=== PATIENT | male | born 1970 | race Caucasian/White ===

== ENCOUNTER 2017-01-01 11:37 | Emergency (ER) | payer SELFPAY ==
[~2017-01-01] VITALS: Ht 177.8 cm; Wt 100.0 kg
[~2017-01-01 11:37] MED LIST: DOXY100T PO; SULF1TAB47 PO; TYLE3 PO
[2017-01-01 11:38] VITALS: BP 145/86; PULSE 66; RESP 18; TEMP 98; O2SAT 100
[2017-01-01] MEDS ORDERED: KETOROLAC TROMETHAMINE 60 MG/2 ML (IM) VIAL IM ONE (12:45)
[2017-01-01] MEDS ORDERED: ACETAMINOPHEN/HYDROcodone 325 MG/5 MG TAB PO ONE (12:45)
[2017-01-01] MEDS ORDERED: HYDR-3583 PO (12:49)
--- NOTE | 2017-01-01 12:49 | PD ---
HPI Chief Complaint: Musculoskeletal Complaint Time Seen by Provider: 12:35 Travel History International Travel<30 days: No Contact w/Intl Traveler<30days: No Traveled to known affect area: No History of Present Illness HPI 46 yo M fell 12 feet from a ladder two days prior. Today pt felt a pop in the R lower/lateral ribs. Pain with deep breathing present now. No SOB at rest. Pt also injured L ankle however has been ambulatory since. Motring 800 mg q6h has been helpful. PFSH Past Surgical History Abdominal Surgery: Yes (DUODENAL ULCER REPAIR 03/19) Genitourinary Surgery: Yes (BLADDER REPAIR 6 MONTH OLD INFANT 1968) Tonsillectomy: Yes (1974) Social History Alcohol Use: No Tobacco Use: No Allergies-Medications (Allergen,Severity, Reaction): Coded Allergies: No Known Allergies (Verified Allergy, Mild, 01/01/17) Reported Meds & Prescriptions Reported Meds & Active Scripts Active Hydrocodone-Acetaminophen 10-325 mg Tab 1 Tab PO HS PRN Review of Systems General / Constitutional: No: Fever Cardiovascular: Positive: Chest Pain or Discomfort (from injury) Respiratory: No: Cough, Shortness of Breath Gastrointestinal: Positive: Other (no bloody stool) Genitourinary: No: Hematuria Physical Exam Narrative GENERAL: 46 yo M NAD, WNWD, ambulatory SKIN: Warm and dry. HEAD: Normocephalic. EYES: No scleral icterus. No injection or drainage. NECK: Supple, trachea midline. No JVD or lymphadenopathy. CARDIOVASCULAR: Regular rate and rhythm without murmurs, gallops, or rubs. RESPIRATORY: MInimal TTP along lower margin of ribs without flail chest. breath sounds equal bilaterally. NO trachea deviation or sign of ptx otherwise. GASTROINTESTINAL: Abdomen soft, non-tender, nondistended. MUSCULOSKELETAL: No cyanosis, or edema. Ecchymosis about the L ankle with minimal tenderness, trace antalgia with ambulation. NO gross deformity otherwise. BACK: Nontender without obvious deformity. No CVA tenderness. Data Data Last Documented VS Vital Signs Date Time Temp Pulse Resp B/P (MAP) Pulse Ox O2 Delivery O2 Flow Rate FiO2 01/01/17 11:38 98.0 66 18 145/86 (105) 100 Room Air VS reviewed Orders Orders Acetamin-Hydrocod 325-5 Mg ([place] 5-325 (01/01/17 12:45) Ketorolac Inj (Toradol Inj) (01/01/17 12:45) Resp Incentive Spirometry (01/01/17 ) Ed Discharge Order (01/01/17 12:49) [facility] Medical Decision Making Medical Screen Exam Complete: Yes Emergency Medical Condition: Yes Medical Record Reviewed: Yes Differential Diagnosis rib fracture, rib contusion, ankle contusion, ptx Narrative Course no sign ptx ambulatory with ecchymosis about the left ankle, xray considered reasonably safely deferrable at this time no flail chest no ptx pain control with lortab and breathing with incentive spirometer return precautions discussed opioid precuations dischsseed Diagnosis Primary Impression: Contusion of rib on right side Qualified Codes: S20.211A - Contusion of right front wall of thorax, initial encounter Additional Impressions: Sprained ankle Qualified Codes: S93.402A - Sprain of unspecified ligament of left ankle, initial encounter Fall Qualified Codes: W19.XXXA - Unspecified fall, initial encounter Patient Instructions: Narcotic given in the ED Med/Other Pt SpecificInfo: Prescription(s) given Scripts Hydrocodone-Acetaminophen (Hydrocodone-Acetaminophen) 10-325 mg Tab 1 TAB PO HS Y for PAIN, #15 TAB 0 Refills Prov: Ovidio Nazario MD 01/01/17 Disposition: 01 DISCHARGE HOME Condition: Stable Ovidio Nazario MD Jan 01, 2017 12:49
== END 2017-01-01 13:04 | disposition home or self-care (01) ==
LOC: NEPK 11:37
DX: S20.211A Contusion of right front wall of thorax, initial encounter (principal); S93.402A Sprain of unspecified ligament of left ankle, initial encounter; W11.XXXA Fall on and from ladder, initial encounter
CPT/HCPCS: 96372; 99285; J1885

== ENCOUNTER 2017-04-19 15:36 | Emergency (ER) | payer SELFPAY ==
[~2017-04-19] VITALS: Ht 177.8 cm; Wt 101.0 kg
[~2017-04-19 15:36] MED LIST changes: -DOXY100T PO; +HYDR-3583 PO; -SULF1TAB47 PO; -TYLE3 PO
[2017-04-19 15:46] VITALS: BP 151/97; PULSE 99; RESP 18; TEMP 98.7; O2SAT 97
[2017-04-19] MEDS ORDERED: HYDR-3516 PO (15:58)
[2017-04-19] MEDS ORDERED: AMOX875T PO (15:58)
[2017-04-19] MEDS ORDERED: MAGICADU2 SWISH-SWAL (15:58)
[2017-04-19] MEDS ORDERED: DICL75TA PO (15:58)
--- NOTE | 2017-04-19 16:05 | PD ---
HPI Chief Complaint: Oral / Dental Pain or Problem Time Seen by Provider: 15:51 Travel History International Travel<30 days: No Contact w/Intl Traveler<30days: No Traveled to known affect area: No History of Present Illness HPI 46-year-old male that presents to the ED for evaluation of dental pain. Patient states that his been having issues with his right lower tooth for some time. Per patient he broke part of the tooth about 2 weeks ago and 2 days ago he broke a little bit more. Per patient ever since he had more swelling and pain. Per patient he has not eaten all follow with a dentist. Per patient he knows that he needs to get the 2 defects. Per patient is concerned because of infection. He has more swelling. Per patient the pain is 10 out of 10. He has not done anything for this. No other medical issues. PFSH Past Medical History Medical History: Denies Significant Hx Influenza Vaccination: No Past Surgical History Abdominal Surgery: Yes (DUODENAL ULCER REPAIR 03/19) Genitourinary Surgery: Yes (BLADDER REPAIR 6 MONTH OLD 1968) Tonsillectomy: Yes (1974) Social History Alcohol Use: No Tobacco Use: No Substance Use: No Allergies-Medications (Allergen,Severity, Reaction): Coded Allergies: No Known Allergies (Verified Allergy, Mild, 04/19/17) Reported Meds & Prescriptions Reported Meds & Active Scripts Active Magic Mouthwash Adult Liq (Multi-Ingredient Mouthwash/Gargle) 120 Ml Susp 5 Ml SWISH-SWAL ACHS Each 5mL contains: Nystatin 200,000units, Diphenhydramine 4.25mg, Viscous Lidocaine 10mg, Crooks syrup 0.8 mL Amoxicillin 875 Mg Tab 875 Mg PO BID 10 Days Hydrocodone-Acetaminophen 5-325 mg Tab 1 Tab PO Q6H PRN Diclofenac Sodium DR (Diclofenac Sodium) 75 Mg Tabdr 75 Mg PO BID PRN Hydrocodone-Acetaminophen 10-325 mg Tab 1 Tab PO HS PRN Review of Systems Except as stated in HPI: all other systems reviewed are Neg Physical Exam Narrative GENERAL: SKIN: Warm and dry. HEAD: Atraumatic. Normocephalic. EYES: Pupils equal and round. No scleral icterus. No injection or drainage. ENT: No nasal bleeding or discharge. Mucous membranes pink and moist. Tongue is midline. No uvula deviation. Dental: Patient has bad dentition noted on the right second molar with about half of the tooth missing. Socket with appears to be exposed. Patient does have soft tissue swelling noted on the right side of the face. NECK: Trachea midline. No JVD. CARDIOVASCULAR: Regular rate and rhythm. RESPIRATORY: No accessory muscle use. Clear to auscultation. Breath sounds equal bilaterally. GASTROINTESTINAL: Abdomen soft, non-tender, nondistended. Hepatic and splenic margins not palpable. MUSCULOSKELETAL: Extremities without clubbing, cyanosis, or edema. No obvious deformities. NEUROLOGICAL: Awake and alert. No obvious cranial nerve deficits. Motor grossly within normal limits. Five out of 5 muscle strength in the arms and legs. Normal speech. PSYCHIATRIC: Appropriate mood and affect; insight and judgment normal. Data Data Last Documented VS Vital Signs Date Time Temp Pulse Resp B/P (MAP) Pulse Ox O2 Delivery O2 Flow Rate FiO2 04/19/17 15:46 98.7 99 18 151/97 (115) 97 MDM Medical Decision Making Medical Screen Exam Complete: Yes Emergency Medical Condition: Yes Medical Record Reviewed: Yes Differential Diagnosis To pain versus fracture versus dentalgia versus dental abscess Narrative Course 38-year-old male that presents to the ED for evaluation of tooth pain. Patient was properly examined and was found to have signs and symptoms consistent appears to be dental infection. Patient was treated for this with amoxicillin, Copaxone, Lortab and Magic mouthwash. Do recommend that the patient gets over- the-counter dry socket paste applied to the wound. This might help with the pain more than the pain medication given. Patient understands to follow with dentist. See ED worsening symptoms. Diagnosis Primary Impression: Dentalgia Patient Instructions: General Instructions Additional Instructions: Take medications as prescribed. Follow with PCP. Ice to the area. Liquid diet until better. You can apply lost filling and loose cap repair paste to the dry socket (you can get this at any pharmacy) ask your pharmacist about this. See ED if worsening symptoms. F/u with dentist. Med/Other Pt SpecificInfo: Prescription(s) given Scripts Mmzbagva-Dcahcmeuymvziin-Cznheitwu Liq (Magic Mouthwash Adult Liq) 120 Ml Susp 5 ML SWISH-SWAL ACHS for Mouth sores, #120 ML 0 Refills Each 5mL contains: Nystatin 200,000units, Diphenhydramine 4.25mg, Viscous Lidocaine 10mg, Crooks syrup 0.8 mL Prov: Xavi Horne MD 04/19/17 Amoxicillin (Amoxicillin) 875 Mg Tab 875 MG PO BID for Infection for 10 Days, #20 TAB 0 Refills Prov: Xavi Horne MD 04/19/17 Hydrocodone-Acetaminophen (Hydrocodone-Acetaminophen) 5-325 mg Tab 1 TAB PO Q6H Y for PAIN, #12 TAB 0 Refills Prov: Xavi Horne MD 04/19/[address] (Diclofenac Sodium DR) 75 Mg Tabdr 75 MG PO BID Y for PAIN SCALE 1 TO 10, #20 TAB 0 Refills Prov: Xavi Horne MD 04/19/17 Disposition: 01 DISCHARGE HOME Condition: Oswaldo Thomas Apr 19, 2017 16:05
== END 2017-04-19 16:21 | disposition home or self-care (01) ==
LOC: PHEFT 15:36
DX: K08.89 Other specified disorders of teeth and supporting structures (principal)
CPT/HCPCS: 99283

== ENCOUNTER 2017-06-28 13:25 | Emergency (ER) | payer SELFPAY ==
[~2017-06-28] VITALS: Ht 177.8 cm; Wt 88.5 kg
[~2017-06-28 13:25] MED LIST changes: +AMOX875T PO; +DICL75TA PO; +HYDR-3516 PO; +MAGICADU2 SWISH-SWAL
[2017-06-28] MEDS ORDERED: IOHEXOL 350 MG/ML 10 ML VIAL (for RAD DIAG) IVCONTRAST ONE (13:26)
[2017-06-28 13:37] VITALS: BP 143/79; PULSE 108; RESP 18; TEMP 98.3; O2SAT 100
[2017-06-28] MEDS ORDERED: CLINDAMYCIN INJ 900 MG in SODIUM CHLORIDE 0.9% INJ 100 ML IV ONE (14:00)
[2017-06-28] MEDS ORDERED: TETANUS/DIPHTHERIA TOXOID ADULT 0.5 ML VIAL IM ONE (14:00)
[2017-06-28] MEDS ORDERED: SODIUM CHLORIDE 0.9% FLUSH 10 ML FLUSH IVF PRN (14:00)
[2017-06-28] MEDS ORDERED: KETOROLAC TROMETHAMINE 30 MG/ML (IVP) VIAL IVP ONE (14:00)
[2017-06-28 14:48] LABS: AUTOMATED NEUTROPHIL # 12.6 TH/MM3 (1.8-7.7); BASOPHIL % 0.3 % (0.0-2.0); EOSINOPHIL % 0.1 % (0.0-4.0); HEMATOCRIT 40.1 % (39.0-51.0); HEMOGLOBIN 13.7 GM/DL (13.0-17.0); LYMPH % 7.8 % (9.0-44.0); LYMPHOCYTE # 1.2 TH/MM3 (1.0-4.8); MEAN CELL VOLUME 84.3 FL (80.0-100.0); MEAN CORPUSCULAR HEMOGLOBIN 28.8 PG (27.0-34.0); MEAN CORPUSCULAR HGB CONC 34.1 % (32.0-36.0); MEAN PLATELET VOLUME 10.5 FL (7.0-11.0); MONO % 6.7 % (0.0-8.0); NEUT % 85.1 % (16.0-70.0); PLATELET COUNT 175 TH/MM3 (150-450); RED BLOOD COUNT 4.76 MIL/MM3 (4.50-5.90); RED CELL DISTRIBUTION WIDTH 13.9 % (11.6-17.2); WHITE BLOOD COUNT 14.8 TH/MM3 (4.0-11.0)
[2017-06-28 15:27] LABS: BICARBONATE 32.8 MEQ/L (21.0-32.0); CALCIUM 8.9 MG/DL (8.5-10.1); CREATININE 1.01 MG/DL (0.60-1.30)
--- NOTE | 2017-06-28 15:36 | PD ---
HPI . Facial infection Chief Complaint: Skin Problem Time Seen by Provider: 13:51 Travel History International Travel<30 days: No Contact w/Intl Traveler<30days: No Traveled to known affect area: No History of Present Illness HPI This patient presents with a chief complaint of a facial infection. He states that he shaved with an old razor 6 days ago. He states that he subsequently discovered that it was sandy. Since then, he has developed pustules associated with hair follicles. He states that he has picked up those and that now his entire face is swollen and painful. The facial swelling and pain started yesterday. He rates the pain at 6/10. It is exacerbated by moving his mouth. He denies any associated fever. PFSH Past Surgical History Abdominal Surgery: Yes (DUODENAL ULCER REPAIR 03/19) Genitourinary Surgery: Yes (BLADDER REPAIR 6 MONTH OLD INFANT 1968) Tonsillectomy: Yes (1974) Social History Alcohol Use: No Tobacco Use: No Substance Use: No Allergies-Medications (Allergen,Severity, Reaction): Coded Allergies: No Known Allergies (Verified Allergy, Mild, 04/19/17) Reported Meds & Prescriptions Reported Meds & Active Scripts Active No Active Prescriptions or Reported Medications Review of Systems Except as stated in HPI: all other systems reviewed are Neg General / Constitutional: No: Fever, Chills Skin: Positive Lesions Physical Exam Narrative GENERAL: Awake and alert and in no acute distress. SKIN: Warm and dry. His face has yellow, crusty lesions in the young. This is associated with some pretty significant swelling of the underlying soft tissues. It is tender to the touch. HEAD: Normocephalic/atraumatic. EYES: Pupils are equal. Extraocular movements are intact. NECK: Normal range of motion. There is induration in the sublingual area. CARDIOVASCULAR: Regular rate and rhythm. RESPIRATORY: Nonlabored respirations. MUSCULOSKELETAL: Atraumatic. NEUROLOGICAL: Nonfocal. PSYCHIATRIC: Appropriate mood and affect. Data Data Last Documented VS Vital Signs Date Time Temp Pulse Resp B/P (MAP) Pulse Ox O2 Delivery O2 Flow Rate FiO2 06/28/17 13:37 98.3 108 18 143/79 (100) 100 Orders Orders Basic Metabolic Panel (Bmp) (06/28/17 13:55) Complete Blood Count With Diff (06/28/17 13:55) Blood Culture (06/28/17 13:55) Iv Access Insert/Monitor (06/28/17 13:55) Ketorolac Inj (Toradol Inj) (06/28/17 14:00) Sodium Chloride 0.9% Flush (Ns Flush) (06/28/17 14:00) Clindamycin Inj (Cleocin Inj) (06/28/17 14:00) Tetanus/Diphtheria Tox Adult (Tetanus/Di (06/28/17 14:00) Ct Soft Tiss Neck W Iv Cont (06/28/17 13:55) Potassium Chloride (Kcl) (06/28/17 15:45) Iohexol 350 Inj (Omnipaque 350 Inj) (06/28/17 13:26) Labs Laboratory Tests Test 06/28/17 14:00 White Blood Count 14.8 TH/MM3 Red Blood Count 4.76 MIL/MM3 Hemoglobin 13.7 GM/DL Hematocrit 40.1 % Mean Corpuscular Volume 84.3 FL Mean Corpuscular Hemoglobin 28.8 PG Mean Corpuscular Hemoglobin Concent 34.1 % Red Cell Distribution Width 13.9 % Platelet Count 175 TH/MM3 Mean Platelet Volume 10.5 FL Neutrophils (%) (Auto) 85.1 % Lymphocytes (%) (Auto) 7.8 % Monocytes (%) (Auto) 6.7 % Eosinophils (%) (Auto) 0.1 % Basophils (%) (Auto) 0.3 % Neutrophils # (Auto) 12.6 TH/MM3 Lymphocytes # (Auto) 1.2 TH/MM3 Monocytes # (Auto) 1.0 TH/MM3 Eosinophils # (Auto) 0.0 TH/MM3 Basophils # (Auto) 0.0 TH/MM3 CBC Comment DIFF FINAL Differential Comment Blood Urea Nitrogen 7 MG/DL Creatinine 1.01 MG/DL Random Glucose 114 MG/DL Calcium Level 8.9 MG/DL Sodium Level 137 MEQ/L Potassium Level 2.9 MEQ/L Chloride Level 96 MEQ/L Carbon Dioxide Level 32.8 MEQ/L Anion Gap 8 MEQ/L Estimat Glomerular Filtration Rate 79 ML/MIN MDM Medical Decision Making Medical Screen Exam Complete: Yes Emergency Medical Condition: Yes Differential Diagnosis My differential diagnosis includes but is not limited to localized wound infection, cellulitis, abscess Narrative Course This patient presents with a skin infection of his face after shaving with an old, sandy razor. On initial inspection, the infection looks like impetigo. However, he has significant soft tissue swelling including swelling in the sublingual space. CT scan is pending to further evaluate the swelling. He has been treated empirically with clindamycin. CBC & BMP Diagram 06/28/17 14:00 Calcium Level 8.9 Potassium has been replaced orally. Last Impressions Neck CT 06/28/17 1355 Signed Impressions: Service Date/Time: Wednesday, June 28, 2017 15:37 - CONCLUSION: 1. Diffuse perioral soft tissue edema and stranding extending inferiorly to just beyond the chin. No focal drainable fluid collections, radiopaque foreign bodies or subcutaneous emphysema. No definite prominent dental caries. 2. Diffuse cervical adenopathy most prominent in the submental region measuring up to 12 mm. Although nonspecific, this is likely reactive/infectious in etiology. There are no necrotic nodes. 3. Small 6 mm left at 4 mm right inferior parotid enhancing lesion which likely reflect intraparotid nodes. Further evaluation may be performed with ultrasound on outpatient basis as clinically warranted, ideally following resolution of patient's symptoms. Mendel Menon MD I have discussed his disposition with him. He feels that he is okay to go home. He understands that he needs to return if his symptoms start worsening or if they fail to improve as expected. He will be discharged home with a prescription for clindamycin. Diagnosis Primary Impression: Cellulitis Qualified Codes: L03.211 - Cellulitis of face Patient Instructions: Cellulitis (DC), General Instructions, Narcotic given in the ED Med/Other Pt SpecificInfo: Prescription(s) given Scripts Clindamycin (Clindamycin) 300 Mg Cap 600 MG PO Q8H for Infection for 10 Days, #60 CAP 0 Refills Prov: Tiffani Casanova MD 06/28/17 Disposition: 01 DISCHARGE HOME Condition: Stable Tiffani Casanova MD June 28, 2017 15:36
[2017-06-28] MEDS ORDERED: POTASSIUM CHLORIDE 20 MEQ CONTROLLED RELEASE TAB PO ONE (15:45)
--- NOTE | 2017-06-28 16:16 | RADRPT ---
EXAM DATE/TIME: 06/28/2017 15:37 [facility] COMPARISON: No previous studies available for comparison. INDICATIONS : Rash and swelling to face and jaw . IV CONTRAST: 70 cc Omnipaque 350 (iohexol) IV RADIATION DOSE: 29.52 CTDIvol (mGy) MEDICAL HISTORY : None SURGICAL HISTORY : None. ENCOUNTER: Initial ACUITY: 4 - 6 days PAIN SCALE: 5/10 LOCATION: facial TECHNIQUE: Volumetric scanning of the neck was performed. Using automated exposure control and adjustment of th e mA and/or kV according to patient size, radiation dose was kept as low as reasonably achievable to obtain optimal diagnostic quality images. DICOM format image data is available electronically for r eview and comparison. FINDINGS: SOFT TISSUES: Diffuse perioral soft tissue edema and stranding extending inferiorly to just beyond the chin. No foc al drainable fluid collections, radiopaque foreign body or subcutaneous emphysema. No definitive dent al caries. There are bilateral associated enlarged submental nodes measuring up to 12 mm. Multiple ad ditional prominent level II and level III nodes measuring up to 11 mm, more prominent on the right. S ubcentimeter level IV and 5 nodes as well as supraclavicular nodes also noted. No necrotic appearing nodes. There are small 6 mm left and 4 mm right inferior parotid enhancing lesions. Parotid and subma ndibular glands are otherwise intact. NASOPHARYNX: The nasopharyngeal airway has a normal configuration. No mucosal thickening or mass is seen. OROPHARYNX: The intrinsic muscles of the tongue are symmetric. The tonsillar pillars are intact. The prevertebr al soft tissues are not thickened. LARYNX: The supraglottic, glottic, and infraglottic structures are intact. PARAPHARYNGEAL: The parapharyngeal space is intact. THYROID: Homogeneous enhancement without evidence of nodule. BONES: Unremarkable. CONCLUSION: 1. Diffuse perioral soft tissue edema and stranding extending inferiorly to just beyond the chin. No focal drainable fluid collections, radiopaque foreign bodies or subcutaneous emphysema. No definite p rominent dental caries. 2. Diffuse cervical adenopathy most prominent in the submental region measuring up to 12 mm. Although nonspecific, this is likely reactive/infectious in etiology. There are no necrotic nodes. 3. Small 6 mm left at 4 mm right inferior parotid enhancing lesion which likely reflect intraparotid nodes. Further evaluation may be performed with ultrasound on outpatient basis as clinically warrante d, ideally following resolution of patient's symptoms. Mendel Menon MD on June 28, 2017 at 16:05 Board Certified Radiologist. This report was verified electronically.
[2017-06-28] MEDS ORDERED: CLIN300C5 PO (16:27)
== END 2017-06-28 16:35 | disposition home or self-care (01) ==
LOC: NEPD 13:25
DX: L03.211 Cellulitis of face (principal); Z23 Encounter for immunization
CPT/HCPCS: 70491; 80048; 85025; 87040; 90471; 90714; 96374; 96375; 99285; J1885; Q9967

== ENCOUNTER 2017-06-30 10:28 | Observation (INO) | payer SELFPAY ==
[~2017-06-30] VITALS: Ht 177.8 cm; Wt 91.0 kg
[~2017-06-30 10:28] MED LIST changes: -AMOX875T PO; +CLIN300C5 PO; -DICL75TA PO; -HYDR-3516 PO; -HYDR-3583 PO; -MAGICADU2 SWISH-SWAL
[2017-06-30 10:33] VITALS: BP 132/75; PULSE 101; RESP 20; TEMP 98.4; O2SAT 99
[2017-06-30] MEDS ORDERED: VANCOMYCIN INJ 1,350 MG in SODIUM CHLORID 0.9% 500 ML INJ 500 ML IV ONE (11:00)
--- NOTE | 2017-06-30 11:21 | PD ---
HPI Chief Complaint: Facial Pain or Swelling Time Seen by Provider: 10:43 Travel History International Travel<30 days: No Contact w/Intl Traveler<30days: No Traveled to known affect area: No History of Present Illness HPI Patient is a 47 year old male who returns to the ER for evaluation of facial swelling/infection. Patient reports that he used an old razor to shave his face on Thursday (he moved and couldn't find a new razor). Reports that he noticed that his face was swollen the next day. Patient was seen in the ER 2 days ago for this and had a workup which included a CT of soft tissue of neck with contrast and was started on clindamycin. Patient has been compliant with his medications but reports that he woke up this morning with swelling to his right side of face and bottom lip. Reports that he has been having chills - " hot and cold sensations." Tetanus is not up to date. Reports that he has no medical problems PFSH Past Medical History Hx Anticoagulant Therapy: No Past Surgical History Abdominal Surgery: Yes (DUODENAL ULCER REPAIR 03/19) Genitourinary Surgery: Yes (BLADDER REPAIR 6 MONTH OLD 1968) Tonsillectomy: Yes (1974) Social History Alcohol Use: Yes Tobacco Use: No Substance Use: No Allergies-Medications (Allergen,Severity, Reaction): Coded Allergies: No Known Allergies (Verified Allergy, Mild, 04/19/17) Reported Meds & Prescriptions Reported Meds & Active Scripts Active Clindamycin (Clindamycin HCl) 300 Mg Cap 600 Mg PO Q8H 10 Days Review of Systems General / Constitutional: Positive: Fever, Chills Eyes: No: Visual changes HENT: No: Headaches Cardiovascular: No: Chest Pain or Discomfort Respiratory: No: Shortness of Breath Gastrointestinal: No: Abdominal Pain Genitourinary: No: Dysuria Musculoskeletal: No: Pain Skin: No Rash Neurologic: No: Weakness Psychiatric: No: Depression Endocrine: No: Polydipsia Hematologic/Lymphatic: No: Easy Bruising Physical Exam Narrative GENERAL: Moderate distress SKIN: Focused skin assessment warm/dry. HEAD: Atraumatic. Normocephalic. EYES: Pupils equal and round. No scleral icterus. No injection or drainage. ENT: No nasal bleeding or discharge. Mucous membranes pink and moist. Patient with swelling to right lower lip with erythema to swelling to the right side of his face, airway is open and patent, he does have honey crusted lesions to his face, there is positive cervical adenopathy NECK: Trachea midline. No JVD. CARDIOVASCULAR: Regular rate and rhythm. No murmur appreciated. RESPIRATORY: No accessory muscle use. Clear to auscultation. Breath sounds equal bilaterally. GASTROINTESTINAL: Abdomen soft, non-tender, nondistended. Hepatic and splenic margins not palpable. MUSCULOSKELETAL: No obvious deformities. No clubbing. No cyanosis. No edema. NEUROLOGICAL: Awake and alert. No obvious cranial nerve deficits. Motor grossly within normal limits. Normal speech. PSYCHIATRIC: Appropriate mood and affect; insight and judgment normal. Data Data Last Documented VS Vital Signs Date Time Temp Pulse Resp B/P (MAP) Pulse Ox O2 Delivery O2 Flow Rate FiO2 06/30/17 11:29 96 Room Air 06/30/17 10:33 98.4 101 20 132/75 (94) Orders Orders Complete Blood Count With Diff (06/30/17 10:57) Comprehensive Metabolic Panel (06/30/17 10:57) Blood Culture (06/30/17 10:57) Ecg Monitoring (06/30/17 10:57) Iv Access Insert/Monitor (06/30/17 10:57) Oximetry (06/30/17 10:57) Vancomycin Inj (Vancomycin Inj) (06/30/17 11:00) Prothrombin Time / Inr (Pt) (06/30/17 10:57) Act Partial Throm Time (Ptt) (06/30/17 10:57) Lactic Acid Sepsis Protocol (06/30/17 10:57) Ct Soft Tiss Neck W Iv Cont (06/30/17 ) Tetanus/Diphtheria Tox Adult (Tetanus/Di (06/30/17 11:30) MDM Medical Decision Making Medical Screen Exam Complete: Yes Emergency Medical Condition: Yes Medical Record Reviewed: Yes Interpretation(s) Vital Signs Date Time Temp Pulse Resp B/P (MAP) Pulse Ox O2 Delivery O2 Flow Rate FiO2 06/30/17 11:29 96 Room Air 06/30/17 10:33 98.4 101 20 132/75 (94) 99 Differential Diagnosis Facial abscess with cellulitis Narrative Course Patient is a 47-year-old male who returns to the emergency room for evaluation of failed outpatient treatment for facial cellulitis. Patient was on clindamycin as outpatient, reports worsening swelling to his face and lips which started on Thursday after using an old razor to shave his face. During the course of the patients emergency department visit, the patients history, examination, and differential diagnosis were reviewed with the patient. The patient was placed on a secured entrance monitor with oximetry and frequent blood pressure monitoring. The patient had an IV access obtained and blood work sent for analysis. The patient was initially provided IV fluids as well as IV vancomycin. Patient has been pancultured, septic workup was initiated. The patients laboratory studies were reviewed and remarkable for [-]. Radiology studies were reviewed and remarkable for [-] Arianna Iraheta DO June 30, 2017 11:21
[2017-06-30 11:29] VITALS: O2SAT 96
[2017-06-30] MEDS ORDERED: TETANUS/DIPHTHERIA TOXOID ADULT 0.5 ML VIAL IM ONE (11:30)
[2017-06-30 11:51] LABS: AUTOMATED NEUTROPHIL # 8.4 TH/MM3 (1.8-7.7); BASOPHIL % 0.3 % (0.0-2.0); EOSINOPHIL # 0.1 TH/MM3 (0-0.4); EOSINOPHIL % 1.1 % (0.0-4.0); HEMATOCRIT 39.8 % (39.0-51.0); HEMOGLOBIN 13.6 GM/DL (13.0-17.0); LYMPH % 9.3 % (9.0-44.0); LYMPHOCYTE # 0.9 TH/MM3 (1.0-4.8); MEAN CELL VOLUME 84.2 FL (80.0-100.0); MEAN CORPUSCULAR HEMOGLOBIN 28.8 PG (27.0-34.0); MEAN CORPUSCULAR HGB CONC 34.2 % (32.0-36.0); MEAN PLATELET VOLUME 9.8 FL (7.0-11.0); MONO % 6.3 % (0.0-8.0); MONOCYTE # 0.6 TH/MM3 (0-0.9); PLATELET COUNT 186 TH/MM3 (150-450); RED BLOOD COUNT 4.73 MIL/MM3 (4.50-5.90); WHITE BLOOD COUNT 10.1 TH/MM3 (4.0-11.0)
[2017-06-30 11:57] LABS: INTERNATIONAL NORMALIZED RATIO 1.1 RATIO; PROTHROMBIN TIME - PATIENT 10.7 SEC (9.8-11.6)
[2017-06-30 12:14] LABS: ALBUMIN 3.3 GM/DL (3.4-5.0); AST (GOT) 30 U/L (15-37); BICARBONATE 29.8 MEQ/L (21.0-32.0); BLOOD UREA NITROGEN 4 MG/DL (7-18); CALCIUM 9.1 MG/DL (8.5-10.1); CHLORIDE 98 MEQ/L (98-107); CREATININE 0.97 MG/DL (0.60-1.30); GLOMERULAR FILTRATION RATE 82 ML/MIN (>89); GLUCOSE,RANDOM 94 MG/DL (74-106); SODIUM (NA) 138 MEQ/L (136-145)
[2017-06-30 12:15] LABS: ALT (GPT) 54 U/L (12-78)
[2017-06-30 12:17] LABS: ALKALINE PHOSPHATASE 134 U/L (45-117); TOTAL BILIRUBIN ADULT 1.2 MG/DL (0.2-1.0); TOTAL PROTEIN 7.4 GM/DL (6.4-8.2)
[2017-06-30 12:21] LABS: LACTIC ACID SEPSIS PROTOCOL 2.3 mmol/L (0.4-2.0)
[2017-06-30] MEDS ORDERED: POTASSIUM CHLORIDE 10 MEQ CONTROLLED RELEASE TAB PO ONE (13:15)
[2017-06-30] MEDS ORDERED: IOHEXOL 350 MG/ML 10 ML VIAL (for RAD DIAG) IVCONTRAST ONE (13:27)
[2017-06-30] MEDS ORDERED: MORPHINE SULFATE 4 MG/ML INJ IV PUSH ONE (13:45)
[2017-06-30] MEDS ORDERED: DEXAMETHASONE SOD PHOS 20 MG/5 ML VIAL IV PUSH ONE (14:00)
[2017-06-30] MEDS ORDERED: Vancomycin Consult Pharmacy 1 EA OTHER SCH (16:45)
[2017-06-30] MEDS ORDERED: ACETAMINOPHEN 325 MG TAB PO PRN (16:45)
[2017-06-30] MEDS ORDERED: ONDANSETRON HCL 4 MG/2 ML VIAL IVP PRN (16:45)
[2017-06-30] MEDS ORDERED: NALOXONE HCL 0.4 MG/ML AMP IV PUSH PRN (16:45)
--- NOTE | 2017-06-30 17:35 | RADRPT ---
EXAM DATE: 06/30/2017 1:28 PM EDT AGE/SEX: 47 years / Male INDICATIONS: Increasing swelling to right side of face/neck. CLINICAL DATA: This is the patient's subsequent encounter. Patient reports that signs and symptoms h ave been present for 3 days and indicates a pain score of 7/10. MEDICAL/SURGICAL HISTORY: None. None. RADIATION DOSE: 15.67 CTDI (mGy) [place] [facility] [place]AST, 06/28/2017. . TECHNIQUE: Helical acquisition was performed using a multirow detector CT scanner during the adminis tration of 96 ml Omnipaque 350 (iohexol) nonionic water-soluble contrast as a single exam dose. Usi ng automated exposure control and adjustment of the mA and/or kV according to patient size, radiation dose was kept as low as reasonably achievable to obtain optimal diagnostic quality images. FINDINGS: A follow-up CT soft tissue neck is been performed. This is compared to the examination of 06/28/2017. There continues to be nonspecific diffuse soft tissue swelling in the soft tissues at the level of th e mandible. No loculated fluid collections are seen. There has been no new or significant changes wit h the overall appearance of the soft tissue swelling. There continues to be cervical adenopathy witho ut change. Compared to the prior study, no new or significant changes are demonstrated. The bony stru ctures are stable. CONCLUSION: 1. No significant change compared to the prior study. Electronically signed by: Jacky Jorge MD 06/30/2017 5:33 PM EDT
[2017-06-30] MEDS: D5-1/2 NS + KCL 20 MEQ INJ 1,000 ML IV SCH (18:03)
[2017-06-30] MEDS: MORPHINE SULFATE 4 MG/ML INJ IV PRN ×2 (18:07→23:45)
--- NOTE | 2017-06-30 19:05 | HHI.HP ---
HPI Service [facility] Primary Care Physician No Primary Care Physician Admission Diagnosis facial cellulitis Diagnoses: Chief Complaint: Facial swelling and infection Travel History International Travel<30 Days: No Contact w/Intl Traveler <30 Da: No Traveled to Known Affected Are: No History of Present Illness 47 years old male who returns again to ER after with a complaint of facial swelling and infection, patient reported using an old sandy razor to shave on Thursday about over a week ago and he noticed his face got swollen the next day, patient went to ED at the time he had a CT of the neck which showed soft tissue swelling without fluid collection or mass. Patient was sent on clindamycin antibiotic however this did not help patient came today with swelling perioral and in the upper neck by the jaw, multiple crusted honey color infected wound around the mouth suspecting off strep infection, otherwise patient denied any other symptoms, he do not have significant past medical history, no fever or chills Review of Systems All systems reviewed and was positive for what is mentioned in history of present illness otherwise negative Past Family Social History Past Medical History None Past Surgical History Abdominal Surgery: Yes (DUODENAL ULCER REPAIR 03/19) Genitourinary Surgery: Yes (BLADDER REPAIR 6 MONTH OLD INFANT 1968) Tonsillectomy: Yes (1974) Allergies: Coded Allergies: No Known Allergies (Verified Allergy, Mild, 04/19/17) Family History Review with the patient,not aware of significant medical history related to her problem runs in the family Social History Denied tobacco alcohol or illicit drug abuse Physical Exam Vital Signs Vital Signs Date Time Temp Pulse Resp B/P (MAP) Pulse Ox O2 Delivery O2 Flow Rate FiO2 06/30/17 11:29 96 Room Air 06/30/17 10:33 98.4 101 20 132/75 (94) 99 Physical Exam GENERAL: This is a well-nourished, well-developed patient, in no apparent distress. SKIN: Multiple honey crusted wound perioral on the face and the nose with induration in the upper neck and underneath the jaw HEAD: Atraumatic. Normocephalic. EYES: Pupils equal round and reactive. Extraocular motions intact. No scleral icterus. ENT: Nose without bleeding, or drainage, Airway patent. NECK: Trachea midline. Supple, indurated skin and swelling in the upper neck CARDIOVASCULAR: Regular rate and rhythm without murmurs, gallops, or rubs. RESPIRATORY: Fair air entry bilaterally. No wheezes, rales, or rhonchi. GASTROINTESTINAL: Abdomen soft, non-tender, nondistended. Positive bowel sounds MUSCULOSKELETAL: Extremities without clubbing, cyanosis, or edema. Pedal pulses appreciated NEUROLOGICAL: Awake and alert. Moves all extremity. Normal speech.no focal neurological deficit Laboratory Laboratory Tests Test 06/30/17 11:15 06/30/17 15:50 White Blood Count 10.1 Red Blood Count 4.73 Hemoglobin 13.6 Hematocrit 39.8 Mean Corpuscular Volume 84.2 Mean Corpuscular Hemoglobin 28.8 Mean Corpuscular Hemoglobin Concent 34.2 Red Cell Distribution Width 14.0 Platelet Count 186 Mean Platelet Volume 9.8 Neutrophils (%) (Auto) 83.0 Lymphocytes (%) (Auto) 9.3 Monocytes (%) (Auto) 6.3 Eosinophils (%) (Auto) 1.1 Basophils (%) (Auto) 0.3 Neutrophils # (Auto) 8.4 Lymphocytes # (Auto) 0.9 Monocytes # (Auto) 0.6 Eosinophils # (Auto) 0.1 Basophils # (Auto) 0.0 CBC Comment DIFF FINAL Differential Comment Prothrombin Time 10.7 Prothromb Time International Ratio 1.1 Activated Partial Thromboplast Time 29.6 Blood Urea Nitrogen 4 Creatinine 0.97 Random Glucose 94 Total Protein 7.4 Albumin 3.3 Calcium Level 9.1 Alkaline Phosphatase 134 Aspartate Amino Transf (AST/SGOT) 30 Alanine Aminotransferase (ALT/SGPT) 54 Total Bilirubin 1.2 Sodium Level 138 Potassium Level 3.3 Chloride Level 98 Carbon Dioxide Level 29.8 Anion Gap 10 Estimat Glomerular Filtration Rate 82 Lactic Acid Level 2.3 1.1 Date/Time Source Procedure Growth Status 06/30/17 11:20 Blood Peripheral Aerobic Blood Culture Pending Received 06/30/17 11:20 Blood Peripheral Anaerobic Blood Culture Pending Received Result Diagram: 06/30/17 1115 06/30/17 1115 Imaging Last Impressions Neck CT 06/30/17 0000 Pending Caprini VTE Risk Assessment Caprini VTE Risk Assessment: No/Low Risk (score <= 1) Caprini Risk Assessment Model Point Value = 1 Point Value = 2 Point Value = 3 Point Value = 5 Age 41-60 Minor surgery BMI > 25 kg/m2 Swollen legs Varicose veins or History of unexplained or recurrent spontaneous Oral contraceptives or hormone replacement Sepsis (< 1 month) Serious lung disease, including pneumonia (< 1 month) Abnormal pulmonary function Acute myocardial infarction Congestive heart failure (< 1 month) History of inflammatory bowel disease Medical patient at bed rest Age 61-74 Arthroscopic surgery Major open surgery (> 45 min) Laparoscopic surgery (> 45 min) Malignancy Confined to bed (> 72 hours) Immobilizing plaster cast Central venous access Age >= 75 History of VTE Family history of VTE Factor V Leiden Prothrombin [id number] Lupus anticoagulant Anticardiolipin antibodies Elevated serum homocysteine Heparin-induced thrombocytopenia Other congenital or acquired thrombophilia Stroke (< 1 month) Elective arthroplasty Hip, pelvis, or leg fracture Acute spinal cord injury (< 1 month) Prophylaxis Regimen Total Risk Factor Score Risk Level Prophylaxis Regimen 0-1 Low Early ambulation 2 Moderate Order ONE of the following: *Sequential Compression Device (SCD) *Heparin 5000 units SQ BID 3-4 Higher Order ONE of the following medications: *Heparin 5000 units SQ TID *Enoxaparin/Lovenox 40 mg SQ daily (WT < 150 kg, CrCl > 30 mL/min) *Enoxaparin/Lovenox 30 mg SQ daily (WT < 150 kg, CrCl > 10-29 mL/min) *Enoxaparin/Lovenox 30 mg SQ BID (WT < 150 kg, CrCl > 30 mL/min) AND/OR *Sequential Compression Device (SCD) 5 or more Highest Order ONE of the following medications: *Heparin 5000 units SQ TID (Preferred with Epidurals) *Enoxaparin/Lovenox 40 mg SQ daily (WT < 150 kg, CrCl > 30 mL/min) *Enoxaparin/Lovenox 30 mg SQ daily (WT < 150 kg, CrCl > 10-29 mL/min) *Enoxaparin/Lovenox 30 mg SQ BID (WT < 150 kg, CrCl > 30 mL/min) AND *Sequential Compression Device (SCD) Assessment and Plan Assessment and Plan 47 years old male admitted with Facial cellulitis(swelling, infected wound) due to use contaminated razor Patient started on vancomycin we will continue, the wound look suspicious for strep impaction, The new CT head and neck reviewed personally by me which did not show much difference than the previous one which initially showed soft tissue swelling no fluid collection or mass Consider ID consultation if no improvement on vancomycin DVT prophylaxis with ambulate Discussed Condition With Patient in ED physician Aristeo Garcia MD June 30, 2017 19:05
[2017-06-30 20:00] VITALS: BP 129/79; PULSE 93; RESP 18; TEMP 99.3; O2SAT 97
[2017-06-30] MEDS: DOCUSATE SODIUM 50 MG/SENNA 8.6 MG TAB PO SCH (20:17)
[2017-06-30] MEDS: ACETAMINOPHEN/HYDROcodone 325 MG/5 MG TAB PO PRN (20:46)
[2017-06-30] MEDS: VANCOMYCIN INJ 1,250 MG in SODIUM CHLOR 0.9% 250 ML INJ 250 ML IV SCH (23:22)
[2017-06-30] MEDS ORDERED: VANCOMYCIN INJ 1,251 MG in SODIUM CHLORID 0.9% 500 ML INJ 500 ML IV SCH (23:45)
[2017-07-01 00:33] VITALS: BP 114/60; PULSE 72; RESP 18; TEMP 98.7; O2SAT 96
[2017-07-01 04:42] VITALS: BP 121/84; PULSE 75; RESP 18; TEMP 97.8; O2SAT 99
[2017-07-01] MEDS: ACETAMINOPHEN/HYDROcodone 325 MG/10 MG TAB PO PRN ×2 (05:41→09:07)
[2017-07-01] MEDS: D5-1/2 NS + KCL 20 MEQ INJ 1,000 ML IV SCH ×2 (05:41→14:00)
[2017-07-01 07:30] LABS: AUTOMATED NEUTROPHIL # 8.2 TH/MM3 (1.8-7.7); BASOPHIL % 0.2 % (0.0-2.0); HEMATOCRIT 40.1 % (39.0-51.0); HEMOGLOBIN 13.2 GM/DL (13.0-17.0); LYMPH % 10.6 % (9.0-44.0); LYMPHOCYTE # 1.1 TH/MM3 (1.0-4.8); MEAN CELL VOLUME 85.9 FL (80.0-100.0); MEAN CORPUSCULAR HEMOGLOBIN 28.4 PG (27.0-34.0); MEAN PLATELET VOLUME 10.8 FL (7.0-11.0); MONO % 6.4 % (0.0-8.0); MONOCYTE # 0.6 TH/MM3 (0-0.9); NEUT % 82.8 % (16.0-70.0); PLATELET COUNT 191 TH/MM3 (150-450); RED BLOOD COUNT 4.67 MIL/MM3 (4.50-5.90); RED CELL DISTRIBUTION WIDTH 14.1 % (11.6-17.2); WHITE BLOOD COUNT 9.9 TH/MM3 (4.0-11.0)
[2017-07-01 07:54] LABS: BICARBONATE 28.3 MEQ/L (21.0-32.0); CALCIUM 8.6 MG/DL (8.5-10.1); CREATININE 0.78 MG/DL (0.60-1.30)
[2017-07-01 08:00] VITALS: BP 136/79; PULSE 75; RESP 16; TEMP 98.2; O2SAT 97
[2017-07-01] MEDS: DOCUSATE SODIUM 50 MG/SENNA 8.6 MG TAB PO SCH ×2 (09:00→20:05)
[2017-07-01 12:00] VITALS: BP 123/75; PULSE 76; RESP 22; TEMP 98.1; O2SAT 99
[2017-07-01] MEDS: VANCOMYCIN INJ 1,250 MG in SODIUM CHLOR 0.9% 250 ML INJ 250 ML IV SCH (12:03)
[2017-07-01] MEDS: ACETAMINOPHEN/HYDROcodone 325 MG/5 MG TAB PO PRN ×2 (15:44→20:05)
[2017-07-01 16:00] VITALS: BP 120/76; PULSE 65; RESP 18; TEMP 98.5; O2SAT 99
--- NOTE | 2017-07-01 17:26 | HHI.PR ---
Subjective Remarks The patient states that the swelling is much improved. Denies fevers or chills. He has not seen any more pus coming out from his chin. Denies diarrhea. Denies rash. Objective Vitals Vital Signs Date Time Temp Pulse Resp B/P (MAP) Pulse Ox O2 Delivery O2 Flow Rate FiO2 07/01/17 12:00 98.1 76 22 123/75 (91) 99 07/01/17 08:00 98.2 75 16 136/79 (98) 97 07/01/17 04:42 97.8 75 18 121/84 (96) 99 07/01/17 00:33 98.7 72 18 114/60 (78) 96 06/30/17 20:00 99.3 93 18 129/79 (96) 97 I/O 06/30/17 06/30/17 06/30/17 07/01/17 07/01/17 07/01/17 06:59 14:59 22:59 06:59 14:59 22:59 Intake Total 1250 ml Balance 1250 ml Intake IV Total 1250 ml # Voids 4 # Bowel Movements 1 Result Diagram: 07/01/17 0606 07/01/17 0606 Imaging Last [address] 06/30/17 0000 Signed Impressions: CONCLUSION: 1. No significant change compared to the prior study. Objective Remarks AAOx3 NAD PERRLA/EOMI Multiple honey crusted wound. On the face and the nose with induration in the upper neck and underneath the jaw. Tender lymphadenopathy. Clear lungs bilaterally. Abdomen soft, nontender nondistended. S1-S2 present with regular rate and rhythm, no murmur rubs or gallops. No edema in lower extremities. A/P Problem List: (1) Sepsis ICD Code: A41.9 - Sepsis, unspecified organism (2) Facial abscess ICD Code: L02.01 - Cutaneous abscess of face (3) Facial cellulitis ICD Code: L03.211 - Cellulitis of face (4) Hypokalemia ICD Code: E87.6 - Hypokalemia Status: Acute (5) Hyperglycemia ICD Code: R73.9 - Hyperglycemia, unspecified Status: Acute Assessment and Plan Patient met sepsis criteria with leukocytosis and heart rate more than 90. Infection source infectious colitis/sepsis. Sepsis now clinically improving. Improving. Continue IV vancomycin. Consult infectious disease since infection is in the face. Patient showed me pictures were he had some purulent discharge coming from the left side of his chin. Potassium level now within normal range. Continue to monitor BMP and replace potassium as needed. Suspect patient's hyperglycemia due to stress and infection. Check hemoglobin A1c to rule out diabetes. Discharge Planning Pending clinical improvement and ID consultation. Sly Huang MD July 01, 2017 17:26
[2017-07-01 21:01] VITALS: BP 128/83; PULSE 74; RESP 18; TEMP 97.9; O2SAT 98
[2017-07-02 00:03] VITALS: BP 119/71; PULSE 67; RESP 18; TEMP 97.9; O2SAT 98
[2017-07-02] MEDS: D5-1/2 NS + KCL 20 MEQ INJ 1,000 ML IV SCH ×2 (00:07→08:58)
[2017-07-02] MEDS: VANCOMYCIN INJ 1,250 MG in SODIUM CHLOR 0.9% 250 ML INJ 250 ML IV SCH ×2 (00:07→12:36)
[2017-07-02] MEDS: ACETAMINOPHEN/HYDROcodone 325 MG/5 MG TAB PO PRN (00:27)
[2017-07-02 05:15] VITALS: BP 135/87; PULSE 67; RESP 18; TEMP 97.8; O2SAT 97
[2017-07-02 08:00] VITALS: BP 135/86; PULSE 66; RESP 18; TEMP 97.7; O2SAT 100
[2017-07-02] MEDS: DOCUSATE SODIUM 50 MG/SENNA 8.6 MG TAB PO SCH ×2 (08:53→20:27)
[2017-07-02] MEDS: ACETAMINOPHEN/HYDROcodone 325 MG/10 MG TAB PO PRN ×4 (08:54→23:58)
[2017-07-02] MEDS ORDERED: PHARMACY ORDERED LAB ONE (11:45)
[2017-07-02 12:00] VITALS: BP 134/99; PULSE 79; RESP 18; TEMP 97.4; O2SAT 99
--- NOTE | 2017-07-02 13:05 | PD.ID.CON ---
History of Present Illness Service ID Consult Requested By Dr Agrawal Reason for Consult facila cellulitis Primary Care Physician No Primary Care Physician Diagnoses: History of Present Illness 47 yo male with 1.5 weeks of tender red lesions on the face around the mouth started after he shaved Reposrs frequenst staph infections no fever chills quit IVDU 2 yrs ago + leukocytosis (ANC in 8K) Review of Systems Except as stated in HPI: all other systems reviewed are Neg Past Family Social History Allergies: Coded Allergies: No Known Allergies (Verified Allergy, Mild, 04/19/17) Past Medical History skin infx Past Surgical History neck abscess I+D recently Active Ordered Medications Medications where reviewed in EMR Antibiotics Include: vancomycin Family History reviewed , no DM in family and essentially non ocntributory Social History quit IVDU 2 yrs ago no tobacco no ETOH Physical Exam Vital Signs Vital Signs Date Time Temp Pulse Resp B/P (MAP) Pulse Ox O2 Delivery O2 Flow Rate FiO2 07/02/17 08:00 97.7 66 18 135/86 (102) 100 07/02/17 05:15 97.8 67 18 135/87 (103) 97 07/02/17 00:03 97.9 67 18 119/71 (87) 98 07/01/17 21:01 97.9 74 18 128/83 (98) 98 07/01/17 16:00 98.5 65 18 120/76 (91) 99 Physical Exam CONSTITUTIONAL/GENERAL: This is an adequately nourished patient, in no apparent distress. TUBES/LINES/DRAINS: SKIN: Multiple tender non fluctuant lumps on upper and lower lips, largest on on lower lip R HEAD: Atraumatic. Normocephalic. EYES: Pupils equal and round and reactive. Extraocular motions intact. No scleral icterus. No injection or drainage. Fundi not examined. ENT: Hearing grossly normal. Nose without bleeding or purulent drainage. Throat without visible erythema, exudates, masses, or lesions. NECK: Trachea midline. Supple, nontender. No palpable thyroid enlargement or nodularity. well healed scar on the neck CARDIOVASCULAR: Regular rate and rhythm without murmurs, gallops, or rubs. No JVD. Peripheral pulses symmetric. RESPIRATORY/CHEST: Symmetric, unlabored respirations. Clear to auscultation. Breath sounds equal bilaterally. No wheezes, rales, or rhonchi. GASTROINTESTINAL: Abdomen soft, non-tender, nondistended. No hepato-splenomegaly , or palpable masses. No guarding. Bowel sounds present. GENITOURINARY: Without palpable bladder distension MUSCULOSKELETAL: Extremities without clubbing, cyanosis, or edema. No joint tenderness or effusion noted. No calf tenderness. No mottling or clubbing. LYMPHATICS: No palpable cervical or supraclavicular adenopathy. NEUROLOGICAL: Awake and alert. Motor and sensory grossly within normal limits. Follows commands. Cognitively sharp. Moves all extremities. PSYCHIATRIC: No obvious anxiety/depression. no apparent hallucinations or other psychotic thought process. Laboratory Laboratory Tests Test 07/02/17 11:45 Vancomycin Level Trough 9.6 Date/Time Source Procedure Growth Status 06/30/17 11:20 Blood Peripheral Aerobic Blood Culture - Preliminary NO GROWTH IN 2 DAYS Resulted 06/30/17 11:20 Blood Peripheral Anaerobic Blood Culture - Preliminary NO GROWTH IN 2 DAYS Resulted Result Diagram: 07/01/17 0606 07/01/17 0606 Imaging Last Impressions Neck CT 06/30/17 0000 Signed Impressions: CONCLUSION: 1. No significant change compared to the prior study. Assessment and Plan Assessment and Plan Facial cellulitis, multiple abscesses on upper and lower lips, likely staph - improving on vancomycin Recurrent skin infx cont vancomycin HIV test (pt is agreable) ev entuallynunticipate transition to po abx Melody Parrish MD July 02, 2017 13:05
[2017-07-02 16:00] VITALS: BP 123/84; PULSE 81; RESP 18; TEMP 98.1; O2SAT 99
--- NOTE | 2017-07-02 16:08 | HHI.PR ---
Subjective Remarks Patient denies fevers or chills, however states he feels hot and cold. Denies chest pain and shortness of breath. Patient thinks swelling in the face is the same as yesterday. Objective Vitals Vital Signs Date Time Temp Pulse Resp B/P (MAP) Pulse Ox O2 Delivery O2 Flow Rate FiO2 07/02/17 12:00 97.4 79 18 134/99 (111) 99 07/02/17 08:00 97.7 66 18 135/86 (102) 100 07/02/17 05:15 97.8 67 18 135/87 (103) 97 07/02/17 00:03 97.9 67 18 119/71 (87) 98 07/01/17 21:01 97.9 74 18 128/83 (98) 98 I/O 07/01/17 07/01/17 07/01/17 07/02/17 07/02/17 07/02/17 07:00 15:00 23:00 07:00 15:00 23:00 Intake Total 1250 ml 720 ml 500 ml 1250 ml Balance 1250 ml 720 ml 500 ml 1250 ml Intake Oral 720 ml IV Total 1250 ml 500 ml 1250 ml # Voids 3 6 # Bowel Movements 1 2 Result Diagram: 07/01/17 0606 07/01/17 0606 Imaging Last Impressions Neck CT 06/30/17 0000 Signed Impressions: CONCLUSION: 1. No significant change compared to the prior study. Objective Remarks AAOx3 NAD PERRLA/EOMI Multiple honey crusted wound. On the face and the nose with induration in the upper neck and underneath the jaw. Tender lymphadenopathy. Clear lungs bilaterally. Abdomen soft, nontender nondistended. S1-S2 present with regular rate and rhythm, no murmur rubs or gallops. No edema in lower extremities. A/P Problem List: (1) Sepsis ICD Code: A41.9 - Sepsis, unspecified organism (2) Facial abscess ICD Code: L02.01 - Cutaneous abscess of face (3) Facial cellulitis ICD Code: L03.211 - Cellulitis of face (4) Hypokalemia ICD Code: E87.6 - Hypokalemia Status: Acute (5) Hyperglycemia ICD Code: R73.9 - Hyperglycemia, unspecified Status: Acute Assessment and Plan Patient met sepsis criteria with leukocytosis and heart rate more than 90. Infection source infectious colitis/sepsis. Sepsis now clinically improving. Improving. Continue IV vancomycin. Consult infectious disease since infection is in the face. Patient showed me pictures were he had some purulent discharge coming from the left side of his chin. Potassium level now within normal range. Continue to monitor BMP and replace potassium as needed. Suspect patient's hyperglycemia due to stress and infection. Check hemoglobin A1c to rule out diabetes. 07/02 appreciate ID recommendations. Continue antibiotics as per ID. Patient currently an IV vancomycin. Blood cultures negative 2. Hypokalemia resolved, continue to monitor BMP. HIV antibody 1 and 2 nonreactive. Discharge Planning Pending clinical improvement and ID consultation. Sly Huang MD July 02, 2017 16:08
[2017-07-02] MEDS ORDERED: diphenhydrAMINE HCL 25 MG CAP PO ONE (19:45)
[2017-07-02 20:40] VITALS: BP 136/80; PULSE 76; RESP 17; TEMP 98; O2SAT 100
[2017-07-03] MEDS ORDERED: VANCOMYCIN INJ 1,500 MG in SODIUM CHLORID 0.9% 500 ML INJ 500 ML IV SCH ×2
[2017-07-03] MEDS: D5-1/2 NS + KCL 20 MEQ INJ 1,000 ML IV SCH ×2 (00:02→06:00)
[2017-07-03 00:40] VITALS: BP 129/80; PULSE 69; RESP 17; TEMP 97.6; O2SAT 99
[2017-07-03 05:00] VITALS: BP 130/69; PULSE 66; RESP 18; TEMP 97; O2SAT 100
[2017-07-03 08:00] VITALS: BP 130/76; PULSE 75; RESP 19; TEMP 97.8; O2SAT 99
[2017-07-03] MEDS: ACETAMINOPHEN/HYDROcodone 325 MG/10 MG TAB PO PRN ×4 (08:44→23:39)
[2017-07-03] MEDS: DOCUSATE SODIUM 50 MG/SENNA 8.6 MG TAB PO SCH ×2 (08:44→21:00)
[2017-07-03 12:00] VITALS: BP 118/73; PULSE 76; RESP 20; TEMP 97.8; O2SAT 98
--- NOTE | 2017-07-03 12:28 | HHI.PR ---
Subjective Remarks Patient is complaining of rash on back very itchy and requesting Benadryl. Denies chest pain or shortness of breath. Denies fevers or chills. Vital signs stable. Objective Vitals Vital Signs Date Time Temp Pulse Resp B/P (MAP) Pulse Ox O2 Delivery O2 Flow Rate FiO2 07/03/17 08:00 97.8 75 19 130/76 (94) 99 07/03/17 05:00 97.0 66 18 130/69 (89) 100 07/03/17 00:40 97.6 69 17 129/80 (96) 99 07/02/17 20:40 98.0 76 17 136/80 (98) 100 07/02/17 16:00 98.1 81 18 123/84 (97) 99 I/O 07/02/17 07/02/17 07/02/17 07/03/17 07/03/17 07/03/17 07:00 15:00 23:00 07:00 15:00 23:00 Intake Total 500 ml 1250 ml 800 ml 1080 ml 120 ml Balance 500 ml 1250 ml 800 ml 1080 ml 120 ml Intake Oral 800 ml 1080 ml 120 ml IV Total 500 ml 1250 ml # Voids 6 1 3 # Bowel Movements 2 0 0 Result Diagram: 07/01/17 0606 07/01/17 0606 Imaging Last Impressions Neck CT 06/30/17 0000 Signed Impressions: CONCLUSION: 1. No significant change compared to the prior study. Objective Remarks AAOx3 NAD PERRLA/EOMI Multiple honey crusted wound. On the face and the nose with induration in the upper neck and underneath the jaw. Tender lymphadenopathy. Clear lungs bilaterally. Abdomen soft, nontender nondistended. S1-S2 present with regular rate and rhythm, no murmur rubs or gallops. No edema in lower extremities. Medications and IVs Current Medications Medications (Trade) Dose Ordered Sig/Adam Route Start Time Stop Time Status Last Admin Potassium Chloride/Dextrose/ Sod Cl 1,000 ml @ 100 mls/hr Q10H IV 06/30/17 18:00 07/03/17 00:02 (Tylenol) 650 mg Q4H PRN PO 06/30/17 16:45 (Zofran Inj) 4 mg Q6H PRN IVP 06/30/17 16:45 ([place] 5-325 Mg) 1 tab Q4H PRN PO 06/30/17 16:45 07/02/17 00:27 ([place] 10-325 Mg) 1 tab Q4H PRN PO 06/30/17 16:45 07/03/17 08:44 (Morphine Inj) 4 mg Q3H PRN IV 06/30/17 17:45 06/30/17 23:45 (Narcan Inj) 0.4 mg UNSCH PRN IV PUSH 06/30/17 16:45 (Melodie-Colace) 1 tab BID PO 06/30/17 21:00 Pharmacy Profile Note 0 ml @ 0 mls/hr UNSCH OTHER 06/30/17 16:45 Vancomycin HCl 1500 mg/Sodium Chloride 515 ml @ 250 mls/hr Q12H IV 07/03/17 00:00 07/03/17 00:03 ([facility] [place] [facility] Ordered Lab Info) SPECIFIC LAB TO BE DRAWN:VANCOMYCIN TROUGH DATE TO... ONCE ONCE .XX 07/04/17 11:45 07/04/17 11:46 A/P Problem List: (1) Sepsis ICD Code: A41.9 - Sepsis, unspecified organism (2) Facial abscess ICD Code: L02.01 - Cutaneous abscess of face (3) Facial cellulitis ICD Code: L03.211 - Cellulitis of face (4) Hypokalemia ICD Code: E87.6 - Hypokalemia Status: Acute (5) Hyperglycemia ICD Code: R73.9 - Hyperglycemia, unspecified Status: Acute Assessment and Plan Patient met sepsis criteria with leukocytosis and heart rate more than 90. Infection source infectious colitis/sepsis. Sepsis now clinically improving. Improving. Continue IV vancomycin. Consult infectious disease since infection is in the face. Patient showed me pictures were he had some purulent discharge coming from the left side of his chin. Potassium level now within normal range. Continue to monitor BMP and replace potassium as needed. Suspect patient's hyperglycemia due to stress and infection. Check hemoglobin A1c to rule out diabetes. 07/02 appreciate ID recommendations. Continue antibiotics as per ID. Patient currently an IV vancomycin. Blood cultures negative 2. Hypokalemia resolved, continue to monitor BMP. HIV antibody 1 and 2 nonreactive. 07/03 patient with new rash on back which looks morbilliform. Suspect possible allergy to vancomycin. I will hold IV vancomycin. Blood cultures negative to date. Discussed with Dr. Parrish from ID who will take a look at the patient, for now we will hold IV vancomycin. Will Rx Benadryl for rash. Discharge Planning Pending clinical improvement and ID clearance. Sly Huang MD July 03, 2017 12:28
[2017-07-03] MEDS ORDERED: diphenhydrAMINE HCL 25 MG CAP PO PRN (14:00)
[2017-07-03] MEDS ORDERED: diphenhydrAMINE HCL 25 MG CAP PO ONE (14:00)
[2017-07-03 16:00] VITALS: BP 128/69; PULSE 76; RESP 19; TEMP 98.8; O2SAT 100
--- NOTE | 2017-07-03 18:40 | HHI.IDPN ---
Subjective Subjective Remarks afebril;e BC negative HIV ANOOP neg improving co some mild rash on the back , not itching Antibiotics vanco Allergies: Coded Allergies: No Known Allergies (Verified Allergy, Mild, 04/19/17) Objective . Vital Signs Date Time Temp Pulse Resp B/P (MAP) Pulse Ox O2 Delivery O2 Flow Rate FiO2 07/03/17 16:00 98.8 76 19 128/69 (88) 100 07/03/17 12:00 97.8 76 20 118/73 (88) 98 07/03/17 08:00 97.8 75 19 130/76 (94) 99 07/03/17 05:00 97.0 66 18 130/69 (89) 100 07/03/17 00:40 97.6 69 17 129/80 (96) 99 07/02/17 20:40 98.0 76 17 136/80 (98) 100 07/03/17 07/03/17 07/04/17 15:00 23:00 07:00 Intake Total 1020 ml Balance 1020 ml Intake Oral 120 ml IV Total 900 ml Physical Exam CONSTITUTIONAL/GENERAL: This is an adequately nourished patient, in no apparent distress. TUBES/LINES/DRAINS: SKIN: Multiple tender non fluctuant lumps on upper and lower lips, largest on on lower lip R scattered excoriations on the back mainly L side NECK: well healed scar on the neck NEUROLOGICAL: Awake and alert.non focal Assessment & Plan Remarks Facial cellulitis, multiple abscesses on upper and lower lips, likely staph - improving on vancomycin Recurrent skin infx HIV negative Rash is not typical for allergic reaction , more favouring heat rash dc vancomycin doxycycline x 10 days OK to dc home - avoid sun exposure while on doxy Melody Parrish MD July 03, 2017 18:40
[2017-07-03] MEDS ORDERED: DOXY1TAB6 PO (18:42)
[2017-07-03 21:15] VITALS: BP 126/68; PULSE 74; RESP 18; TEMP 98; O2SAT 99
[2017-07-03] MEDS: DOXYCYCLINE HYCLATE 100 MG CAP PO SCH (22:13)
[2017-07-04] VITALS: BP 125/70; PULSE 69; RESP 17; TEMP 98; O2SAT 99
[2017-07-04 03:40] VITALS: BP 120/64; PULSE 64; RESP 18; TEMP 98; O2SAT 98
[2017-07-04] MEDS: ACETAMINOPHEN/HYDROcodone 325 MG/10 MG TAB PO PRN (07:54)
[2017-07-04 08:21] VITALS: BP 119/75; PULSE 72; RESP 18; TEMP 97.6; O2SAT 96
[2017-07-04] MEDS: DOCUSATE SODIUM 50 MG/SENNA 8.6 MG TAB PO SCH (09:00)
--- NOTE | 2017-07-04 10:21 | HHI.DS ---
Discharge Summary Admission Date June 30, 2017 at 16:40 Discharge Date: July 04, 2017 Admitting Diagnosis facial cellulitis (1) Sepsis ICD Code: A41.9 - Sepsis, unspecified organism Diagnosis: Principal (2) Facial abscess ICD Code: L02.01 - Cutaneous abscess of face Diagnosis: Principal (3) Facial cellulitis ICD Code: L03.211 - Cellulitis of face Diagnosis: Principal (4) Hypokalemia ICD Code: E87.6 - Hypokalemia Diagnosis: Secondary Status: Acute (5) Hyperglycemia ICD Code: R73.9 - Hyperglycemia, unspecified Diagnosis: Secondary Status: Acute Procedures None Brief History - From Admission 47 years old male who returns again to ER after with a complaint of facial swelling and infection, patient reported using an old sandy razor to shave on Thursday about over a week ago and he noticed his face got swollen the next day, patient went to ED at the time he had a CT of the neck which showed soft tissue swelling without fluid collection or mass. Patient was sent on clindamycin antibiotic however this did not help patient came today with swelling perioral and in the upper neck by the jaw, multiple crusted honey color infected wound around the mouth suspecting off strep infection, otherwise patient denied any other symptoms, he do not have significant past medical history, no fever or chills CBC/BMP: 07/01/17 0606 07/01/17 0606 Significant Findings Laboratory Tests Test 07/02/17 11:45 07/02/17 14:35 Imaging Last Impressions Neck CT 06/30/17 0000 Signed Impressions: CONCLUSION: 1. No significant change compared to the prior study. PE at Discharge AAOx3 NAD PERRLA/EOMI Multiple honey crusted wound on the face, around the jaw and perioral area. Adenopathy resolved, small nodular abscesses improved, nontender, nonpruritic.. Clear lungs bilaterally. Abdomen soft, nontender nondistended. S1-S2 present with regular rate and rhythm, no murmur rubs or gallops. No edema in lower extremities. Hospital Course This is a 47-year-old male presented to the emergency department with facial swelling and concern for infection. Patient was admitted as a case of sepsis secondary to facial cellulitis. Patient was started on vancomycin, infectious disease was consulted. Patient however had a rash while on vancomycin. Blood cultures remain negative. HIV antibody was negative. Infectious disease recommended to switch vancomycin to doxycycline, patient remained stable with improvement of facial rash, patient will be discharged on doxycycline for 10 days. Pt Condition on Discharge: Good Discharge Disposition: Discharge Home Discharge Time: > 30 minutes Discharge Instructions DIET: Follow Instructions for: As Tolerated, No Restrictions Activities you can perform: Regular-No Restrictions Follow up Referrals: PCP Follow-up - 1 Week PCP Follow-up New Medications: Doxycycline Hyclate DR (Doxycycline Hyclate DR) 100 Mg Tab 100 MG PO BID for Infection for 10 Days, #20 TAB 0 Refills Funmilayo Diaz MD July 04, 2017 10:20
[2017-07-04] MEDS: DOXYCYCLINE HYCLATE 100 MG CAP PO SCH (11:06)
[2017-07-04] MEDS ORDERED: PHARMACY ORDERED LAB ONE (11:45)
== END 2017-07-04 11:20 | disposition home or self-care (01) ==
LOC: NEPE 10:28 → NEDA 16:40 → INTOOBSV 16:40 → N05B 18:27
PROVIDERS: ADMIT Hospitalist; ATTEND Hospitalist
DX: L03.211 Cellulitis of face (principal); L02.01 Cutaneous abscess of face; B96.89 Other specified bacterial agents as the cause of diseases classified elsewhere; R22.0 Localized swelling, mass and lump, head; R68.83 Chills (without fever); E87.6 Hypokalemia; R73.9 Hyperglycemia, unspecified
CPT/HCPCS: 70491; 80048; 80053; 80202; 83605; 85025; 85610; 85730; 86703; 87040; 90471; 90714; 96361; 96365; 96366; 96375; 96376; 99285; G0378; J1100; J2270; J3370; J3480; J7040; J7050; Q9967